=== PATIENT | male | born 1985 | race Caucasian/White ===

== ENCOUNTER 2018-09-09 12:51 | Emergency (ER) | payer SELFPAY ==
[2018-09-09] MEDS ORDERED: HYDROcodone/Acetaminophen 5/325 mg Tablet ONE (15:08)
--- NOTE | 2018-09-09 15:12 | RAD ---
RIGHT HUMERUS 2 VIEWS: Date: 09/09/18 HISTORY: 33-year-old male with history of injury to right humerus and upper arm from a fall and holding on to machinery. Tight sensation when straightens arm. FINDINGS/IMPRESSION: No fracture, dislocation, or other significant acute osseous abnormality. POS: [facility]
== END 2018-09-09 15:13 | disposition home or self-care (01) ==
LOC: SCSER 12:51
DX: M79.621 Pain in right upper arm (principal); F32.9 Major depressive disorder, single episode, unspecified; F41.9 Anxiety disorder, unspecified